=== PATIENT | male | born 1980 | race Caucasian/White ===

== ENCOUNTER → 2019-02-01 | Outpatient (CLI) | payer BC ==
--- NOTE | 2019-02-01 10:03 | RAD ---
EXAM: Ultrasound neck soft tissues. HISTORY: Enlarged lymph nodes. COMPARISON: None. FINDINGS: Sonographic evaluation of the left neck soft tissues was performed at the site of concern. Multiple lymph nodes have fatty crow and appear benign. The largest measures 2.0 x 0.9 x 0.3 cm. Another more inferiorly measures 1.4 x 0.4 x 0.6 cm. One in the supraclavicular position measures 1.4 x 0.6 cm. Another measures 1.1 x 0.5 cm. IMPRESSION: 1. Left cervical and supraclavicular lymph nodes appear benign and are likely reactive. Recommend ongoing clinical follow-up of palpable foci. Sonographic reassessment could be performed if they are unstable or do not resolve after treatment. Electronically signed by: Mirna Gary MD (02/01/2019 10:00 AM) [facility]
== END | disposition home or self-care (01) ==
LOC: PMG 07:41
PROVIDERS: ATTEND Physician Assistant Medical
DX: R59.1 Generalized enlarged lymph nodes (principal)
CPT/HCPCS: 76536

== ENCOUNTER → 2020-11-15 | Outpatient (CLI) | payer BC ==
--- NOTE | 2020-11-15 17:16 | RAD ---
Study: CT pelvis without contrast INDICATION: Left lower quadrant pain. COMPARISON: None. TECHNIQUE: Axial CT imaging of the pelvis performed without the use of intravenous contrast. Coronal and sagittal reformats were obtained. One or more of the following individualized dose reduction techniques were utilized for this examinat ion: 1. Automated exposure control 2. Adjustment of the mA and/or kV according to patient size 3. Use of iterative reconstruction technique. FINDINGS: Unremarkable partially imaged liver, gallbladder, pancreas, spleen, left adrenal gland and kidneys. T he renal sinus fat is less well delineated on the right but there is no collecting system dilatation or stone. Unremarkable urinary bladder and prostate. The visualized colon is within normal limits with no localized wall thickening or pericolonic inflamm ation. Normal appendix and imaged small bowel. No relevant body wall hernia. Normally sized inguinal lymph nodes. Symmetric muscular bulk. No free p elvic fluid. No acute or aggressive osseous process. No advanced degenerative changes. IMPRESSION: No osseous or soft tissue abnormality is identified to explain the patient's reported left lower quad rant pain. Electronically signed by: CALEB ORELLANA MD (11/15/2020 5:14 PM) [facility]
== END ==
LOC: CT 16:27
PROVIDERS: ATTEND Physician Assistant Medical
DX: R10.32 Left lower quadrant pain (principal)
CPT/HCPCS: 72192